=== PATIENT | male | born 1960 | race African-American/Black ===

== ENCOUNTER 2019-10-07 17:03 | Emergency (ER) | payer OTHER ==
[~2019-10-07] VITALS: Ht 193 cm; Wt 122.7 kg
[2019-10-07 18:17] LABS: EOSINOPHILS % 0.9 % (0.0-5.0); HEMATOCRIT. 45.2 % (42.0-52.0); HEMOGLOBIN. 15.1 g/dL (14.0-18.0); LYMPHOCYTES % 29.4 % (20.0-50.0); MEAN CORPUSCULAR HEMOGLOBIN 29.5 pg (28.0-32.0); MEAN PLATELET VOLUME 6.7 fl (7.4-10.4); MONOCYTES % 7.5 % (2.0-8.0); NEUTROPHILS % 61.2 % (40.0-76.0); PLATELET 304 x1000/uL (130-400); RED BLOOD CELL COUNT 5.14 mill/uL (4.7-6.1); RED CELL DISTRIBUTION WIDTH 14.6 % (11.6-14.6)
[2019-10-07 18:24] LABS: CHLORIDE 108 mEq/L (98-107)
[2019-10-07] MEDS ORDERED: ASPIRIN 81MG TABLET PO ONE (18:30)
[2019-10-07] MEDS: NITROGLYCERIN 0.4MG TABLET SL SL PRN ×3 (18:48→18:58)
[2019-10-08 00:43] VITALS: BP 186/96
== END 2019-10-08 03:05 | disposition short-term general hospital (02) ==
LOC: ER 17:03
DX: I20.0 Unstable angina (principal); I10 Essential (primary) hypertension
CPT/HCPCS: 36415; 71045; 80053; 83880; 84484; 85025; 93005; 99285

== ENCOUNTER 2019-10-30 16:37 | Emergency (ER) | payer MEDICARE, MEDICAID ==
[~2019-10-30] VITALS: Ht 188 cm; Wt 120.0 kg
[2019-10-30 18:08] LABS: CLARITY URINE CLEAR (CLEAR); COLOR URINE YELLOW (YELLOW); KETONES URINE TRACE (NEGATIVE); LEUKOCYTE ESTERASE URINE NEGATIVE (NEGATIVE); NITRITE URINE NEGATIVE (NEGATIVE); OCCULT BLOOD URINE TRACE (NEGATIVE); PH URINE 6.5 (4.5-8.0); PROTEIN URINE NEGATIVE (NEGATIVE); SPECIFIC GRAVITY URINE 1.024 (1.005-1.030)
[2019-10-30 18:23] LABS: BASOPHILS % 0.6 % (0.0-2.0); EOSINOPHILS % 3.6 % (0.0-5.0); HEMATOCRIT. 41.4 % (42.0-52.0); HEMOGLOBIN. 13.8 g/dL (14.0-18.0); LYMPHOCYTES % 28.5 % (20.0-50.0); MEAN CORPUSCULAR HEMOGLOBIN 29.8 pg (28.0-32.0); MEAN CORPUSCULAR VOLUME 89.5 fL (80.0-94.0); MEAN PLATELET VOLUME 7.1 fl (7.4-10.4); MONOCYTES % 6.8 % (2.0-8.0); NEUTROPHILS % 60.5 % (40.0-76.0); PLATELET 273 x1000/uL (130-400); RED BLOOD CELL COUNT 4.63 mill/uL (4.7-6.1); RED CELL DISTRIBUTION WIDTH 14.5 % (11.6-14.6)
[2019-10-30 18:27] LABS: CHLORIDE 109 mEq/L (98-107)
[2019-10-30 18:32] LABS: METHADONE URINE SCREEN NEGATIVE (NEGATIVE)
[2019-10-30 18:33] LABS: *AMPHETAMINES SCREEN URINE NEGATIVE (NEGATIVE); *BARBITURATES SCREEN URINE NEGATIVE (NEGATIVE); *BENZODIAZEPINES SCREEN URINE NEGATIVE (NEGATIVE); *COCAINE SCREEN URINE PRESUMTIVE POSITIVE (NEGATIVE); CANNABINOID URINE SCREEN PRESUMTIVE POSITIVE (NEGATIVE); OPIATES URINE SCREEN NEGATIVE (NEGATIVE); PHENCYCLIDINE URINE SCREEN NEGATIVE (NEGATIVE)
[2019-10-30] MEDS ORDERED: HYDROCODONE/ACETAMINOPHEN 5/325MG TABLET PO ONE (20:00)
[2019-10-30 20:15] VITALS: BP 177/108
== END 2019-10-30 20:39 | disposition home or self-care (01) ==
LOC: ER 16:37
DX: T40.5X1A Poisoning by cocaine, accidental (unintentional), initial encounter (principal); Y92.89 Other specified places as the place of occurrence of the external cause; R07.89 Other chest pain; D64.9 Anemia, unspecified; I10 Essential (primary) hypertension; F12.10 Cannabis abuse, uncomplicated; E83.51 Hypocalcemia; Z87.440 Personal history of urinary (tract) infections
CPT/HCPCS: 36415; 71045; 80053; 80305; 81003; 83880; 84484; 85025; 93005; 99285

== ENCOUNTER 2020-01-23 03:54 | Emergency (ER) | payer MEDICARE, MEDICAID ==
[~2020-01-23] VITALS: Ht 193 cm; Wt 118.0 kg
[2020-01-23] MEDS ORDERED: ONDANSETRON HCL 4MG/2ML INJ IV STA (04:29)
[2020-01-23] MEDS ORDERED: FAMOTIDINE 20MG/2ML VIAL IV STA (04:29)
[2020-01-23] MEDS ORDERED: SODIUM CHLORIDE 0.9% 1,000 ML IV ONE (04:30)
[2020-01-23] MEDS ORDERED: SUCRALFATE 1 G/10 ML UDC PO ONE (04:45)
[2020-01-23 04:51] LABS: BASOPHILS % 0.5 % (0.0-2.0); EOSINOPHILS % 1.7 % (0.0-5.0); HEMATOCRIT. 45.7 % (42.0-52.0); HEMOGLOBIN. 15.2 g/dL (14.0-18.0); LYMPHOCYTES % 32.7 % (20.0-50.0); MEAN CORPUSCULAR HEMOGLOBIN 29.7 pg (28.0-32.0); MEAN CORPUSCULAR VOLUME 89.3 fL (80.0-94.0); MONOCYTES % 4.4 % (2.0-8.0); NEUTROPHILS % 60.7 % (40.0-76.0); RED BLOOD CELL COUNT 5.12 mill/uL (4.7-6.1); RED CELL DISTRIBUTION WIDTH 14.8 % (11.6-14.6)
[2020-01-23 04:58] LABS: CHLORIDE 107 mEq/L (98-107)
[2020-01-23 05:03] LABS: INR 1.1; PROTHROMBIN TIME 11.1 sec (9.6-11.0)
[2020-01-23 05:33] LABS: CLARITY URINE CLEAR (CLEAR); COLOR URINE YELLOW (YELLOW); KETONES URINE NEGATIVE (NEGATIVE); LEUKOCYTE ESTERASE URINE NEGATIVE (NEGATIVE); NITRITE URINE NEGATIVE (NEGATIVE); OCCULT BLOOD URINE TRACE (NEGATIVE); PH URINE 7.5 (4.5-8.0); PROTEIN URINE TRACE (NEGATIVE); SPECIFIC GRAVITY URINE 1.017 (1.005-1.030); UROBILINOGEN URINE 0.2 E.U./dL (0.2-1.0)
[2020-01-23 05:33] LABS: MEAN PLATELET VOLUME 7.5 fl (7.4-10.4); PLATELET 286 x1000/uL (130-400)
[2020-01-23] MEDS ORDERED: ONDANSETRON HCL 4MG/2ML INJ IV ONE (06:15)
[2020-01-23 07:07] VITALS: BP 143/87
[2020-01-23 08:15] LABS: *AMPHETAMINES SCREEN URINE NEGATIVE (NEGATIVE); *BARBITURATES SCREEN URINE NEGATIVE (NEGATIVE); *BENZODIAZEPINES SCREEN URINE NEGATIVE (NEGATIVE); CANNABINOID URINE SCREEN PRESUMTIVE POSITIVE (NEGATIVE); OPIATES URINE SCREEN NEGATIVE (NEGATIVE); PHENCYCLIDINE URINE SCREEN NEGATIVE (NEGATIVE)
[2020-01-23 08:16] LABS: *COCAINE SCREEN URINE NEGATIVE (NEGATIVE); METHADONE URINE SCREEN NEGATIVE (NEGATIVE)
== END 2020-01-23 07:06 | disposition home or self-care (01) ==
LOC: ER 03:54
DX: K29.70 Gastritis, unspecified, without bleeding (principal); I10 Essential (primary) hypertension; E87.6 Hypokalemia; F12.90 Cannabis use, unspecified, uncomplicated
CPT/HCPCS: 36415; 71045; 76705; 80053; 80305; 81003; 83690; 83880; 84484; 85025; 85610; 93005; 96361; 96374; 96375; 96376; 99285; J2405; J3490; J7030

== ENCOUNTER 2020-08-24 20:03 | Emergency (ER) | payer MEDICARE, MEDICAID ==
[~2020-08-24] VITALS: Ht 188 cm; Wt 100.0 kg
[2020-08-24] MEDS ORDERED: HYDROCODONE/ACETAMINOPHEN 5/325MG TABLET PO ONE (22:30)
[2020-08-25] MEDS ORDERED: IBUP-2028 MT (00:49)
[2020-08-25 01:15] VITALS: BP 137/78
== END 2020-08-25 01:25 | disposition home or self-care (01) ==
LOC: ER 20:03
DX: S29.8XXA Other specified injuries of thorax, initial encounter (principal); R10.84 Generalized abdominal pain; I10 Essential (primary) hypertension; F14.10 Cocaine abuse, uncomplicated; F12.90 Cannabis use, unspecified, uncomplicated; Z88.6 Allergy status to analgesic agent; Z79.82 Long term (current) use of aspirin; Z79.899 Other long term (current) drug therapy; V49.49XA Driver injured in collision with other motor vehicles in traffic accident, initial encounter; Y93.89 Activity, other specified; Y92.488 Other paved roadways as the place of occurrence of the external cause; Y99.8 Other external cause status
CPT/HCPCS: 71250; 74176; 93005; 99284

== ENCOUNTER 2022-04-18 11:21 | Emergency (ER) | payer BC, MEDICAID, MEDICARE ==
[~2022-04-18] VITALS: Ht 172.7 cm; Wt 80.0 kg
[~2022-04-18 11:21] MED LIST: AMLO10TA80 MT; AMLO1POW MC; HYDR-4135 MT; IBUP-2028 MT
[2022-04-18 11:22] VITALS: BP 134/88
== END 2022-04-18 12:25 | disposition home or self-care (01) ==
LOC: ER 11:21
DX: G89.29 Other chronic pain (principal); M79.18 Myalgia, other site; M54.9 Dorsalgia, unspecified; M79.673 Pain in unspecified foot; Z87.81 Personal history of (healed) traumatic fracture; Z87.828 Personal history of other (healed) physical injury and trauma; I10 Essential (primary) hypertension
CPT/HCPCS: 99283

== ENCOUNTER 2024-03-28 11:02 | Emergency (ER) | payer MEDICARE, MEDICAID ==
[~2024-03-28] VITALS: Ht 195.6 cm; Wt 127.0 kg
[~2024-03-28 11:02] MED LIST changes: -HYDR-4135 MT; +HYDR50TA40 MT
[2024-03-28 11:04] VITALS: O2SAT 99
[2024-03-28 11:06] VITALS: BP 144/90; PULSE 74; RESP 18; TEMP 98; O2SAT 99
[2024-03-28 11:44] LABS: BASOPHILS % 1.4 % (0.0-2.0); EOSINOPHILS % 2.2 % (0.0-5.0); HEMATOCRIT. 40.7 % (42.0-52.0); HEMOGLOBIN. 13.5 g/dL (14.0-18.0); LYMPHOCYTES % 27.8 % (20.0-50.0); MEAN CORPUSCULAR HEMOGLOBIN 29.9 pg (28.0-32.0); MEAN CORPUSCULAR HGB CONC 33.2 g/dL (31.0-37.0); MEAN PLATELET VOLUME 6.1 fl (7.4-10.4); MONOCYTES % 6.4 % (2.0-8.0); NEUTROPHILS % 62.2 % (40.0-76.0); PLATELET 338 x1000/uL (130-400); RED BLOOD CELL COUNT 4.52 mill/uL (4.7-6.1); RED CELL DISTRIBUTION WIDTH 14.4 % (11.6-14.6); WHITE BLOOD COUNT 4.4 x1000/uL (4.5-11.0)
[2024-03-28 11:50] LABS: CHLORIDE 108 mEq/L (98-107); POTASSIUM 3.7 mEq/L (3.5-5.1); SODIUM 140 mEq/L (136-145)
[2024-03-28 11:51] LABS: CALCIUM 8.7 mg/dL (8.7-10.4); CARBON DIOXIDE 27 mEq/L (21-32)
[2024-03-28 11:56] LABS: CREATININE 1.1 mg/dL (0.6-1.3); GLUCOSE 99 mg/dL (70-105); UREA NITROGEN BLOOD 13 mg/dL (9-23)
[2024-03-28 11:57] LABS: TROPONIN I HIGH SENSITIVITY 44 ng/L (3.0-53)
[2024-03-28 11:58] LABS: ALANINE AMINOTRANSFERASE 19 IU/L (10-49); ALBUMIN 4.1 g/dL (3.2-4.8); ASPARTATE AMINOTRANSFERASE 22 IU/L (<34); BILIRUBIN DIRECT 0.1 mg/dL (<=3.0)
[2024-03-28 11:59] LABS: BILIRUBIN TOTAL 0.4 mg/dL (0.1-1.0)
== END 2024-03-28 12:35 | disposition left against medical advice (07) ==
LOC: ER 11:50
DX: R11.2 Nausea with vomiting, unspecified (principal); F12.90 Cannabis use, unspecified, uncomplicated; I10 Essential (primary) hypertension; Z88.6 Allergy status to analgesic agent
CPT/HCPCS: 36415; 71045; 80048; 80076; 84484; 85025; 93005; 99285